=== PATIENT | male | born 1990 | race Caucasian/White ===

== ENCOUNTER 2017-11-27 21:38 | Emergency (ER) | payer SELFPAY ==
--- NOTE | 2017-11-27 23:36 | NUR ---
CALLED FOR PT NO ANSWER LWBT
== END 2017-11-27 23:39 | disposition left against medical advice (07) ==
LOC: ER 21:40
DX: Z53.21 Procedure and treatment not carried out due to patient leaving prior to being seen by health care provider (principal)